=== PATIENT | female | born 1950 | race Caucasian/White ===

== ENCOUNTER → 2018-11-03 | Outpatient (CLI) | payer MEDICARE | LOC: CARD 09:48 | PROVIDERS: ATTEND Internal Medicine Cardiovascular Disease | DX: I48.91 Unspecified atrial fibrillation (principal); I10 Essential (primary) hypertension; E78.2 Mixed hyperlipidemia | CPT/HCPCS: 93225; 93226; 93306 ==

== ENCOUNTER → 2018-11-05 | Outpatient (CLI) | payer MEDICARE ==
[~2018-11-05] VITALS: Ht 165.1 cm; Wt 68.0 kg
[~2018-11-05] MED LIST: CATHETER FLUSH 10 ML SYR IV PRN
[2018-11-05 13:05] VITALS: BP 180/66
--- NOTE | 2018-11-05 18:01 | STRESS TEST ---
DATE OF SERVICE: 11/05/2018 EXERCISE MYOVIEW STRESS TEST REPORT Baseline heart rate is 68. Baseline blood pressure is 132/90. Baseline EKG is sinus rhythm with no ischemic changes. In summary, the patient was injected with 10.72 mCi of technetium-99 Myoview and the resting images were obtained. Then, the patient started exercising with a baseline heart rate, blood pressure and EKG mentioned above. The patient was able to exercise for 2 minutes and 45 seconds on standard Sam protocol. Test was terminated. EKG was showing nondiagnostic changes. During recovery, heart rate and blood pressure returned to baseline. The resting and stress images were reviewed and compared in the short axis, horizontal long axis, and vertical long axis views. Review of the images showed motion artifact affecting the quality of the images. There is reversible ischemia involving the mid to apical anterior wall and anterior septum. SSS is 9, SDS 4, and TID value 0.95. On the gated images, the left ventricle appeared to be normal size with normal contractility. Calculated ejection fraction is 83%. CONCLUSION: 1. Poor exercise tolerance, a total of 2 minutes 45 seconds on standard Sam protocol, a total of 4.2 METs achieving 90% of maximum expected heart rate 90%. 2. Hypertensive response to exercise with peak blood pressure 182/111, returned to baseline during recovery. 3. Motion artifact with breast attenuation with reversible ischemia involving the mid to apical anterior wall and anterior septum. 4. Normal left ventricular size with normal contractility. Calculated ejection fraction is 83%. Job ID: [id number] DocumentID: [id number] Dictated Date: 11/05/2018 15:37:44 Mandarin Speaking Nanny Date: 11/05/2018 18:01:17 Dictated By: SARKIS OSBORNE MD
== END ==
LOC: CARD 11:18 → EDUNIT# 11:45
PROVIDERS: ATTEND Internal Medicine Cardiovascular Disease
DX: I48.91 Unspecified atrial fibrillation (principal); I10 Essential (primary) hypertension; E78.2 Mixed hyperlipidemia
CPT/HCPCS: 78452; 93017

== ENCOUNTER 2018-11-19 08:44 | Day surgery (SDC) | payer MEDICARE ==
[2018-11-19] VITALS (9 sets, daily range): BP systolic 139–162; BP diastolic 76–96
[~2018-11-19] VITALS: Ht 165.1 cm; Wt 68.0 kg
[2018-11-19] MEDS ORDERED: NS IV 1000 ML 3,000 ML ONE (08:46)
[2018-11-19] MEDS ORDERED: LIDOCAINE 1% INJ 20 ML 20 ML VIAL ONE (08:46)
[2018-11-19] MEDS ORDERED: HEParin 1000 UNIT/ML (10ML VIAL) FOR BOLUS ONE (08:46)
[2018-11-19] MEDS ORDERED: NS IV 1000 ML 1,000 ML IV SCH ×2 (08:48→12:01)
--- OUTSIDE RECORDS SUMMARY | 2018-11-19 08:53 | XMS REPORT | Continuity of Care Document ---
Author Author [facility] Organization [facility] Address Unknown Phone Unavailable Allergies Active Description Code Type Severity Reaction Onset Reported/Identified Relationship to Patient Clinical Status Yes Sulfa (Sulfonamide Antibiotics) [id number] Drug Allergy Unknown N/A 2018 Medications There is no data. Problems Date Dx Coded Attending Type Code Diagnosis Diagnosed By 11/06/2018 SARKIS OSBORNE MD Ot E78.2 MIXED HYPERLIPIDEMIA 11/06/2018 SARKIS OSBORNE MD Ot I10 ESSENTIAL (PRIMARY) HYPERTENSION 11/06/2018 SARKIS OSBORNE MD Ot I48.91 UNSPECIFIED ATRIAL FIBRILLATION 11/18/2018 SARKIS OSBORNE MD Ot E78.2 MIXED HYPERLIPIDEMIA 11/18/2018 SARKIS OSBORNE MD Ot I10 ESSENTIAL (PRIMARY) HYPERTENSION 11/18/2018 SARKIS OSBORNE MD Ot I48.91 UNSPECIFIED ATRIAL FIBRILLATION Procedures There is no data. Results There is no data. Encounters ACCT No. Visit Date/Time Discharge Status Pt. Type Provider Facility Loc./Unit Complaint [id number] 06/21/2017 09:11:23 06/21/2017 23:59:59 [facility] Outpatient Clay Hall [id number] 06/18/2017 11:05:51 06/18/2017 23:59:59 C[facility] Outpatient Nicole Mack [id number] 03/25/2017 11:04:15 03/25/2017 23:59:59 CLS Outpatient Clay Hall [id number] 12/25/2016 10:59:20 12/25/2016 23:59:59 CLS Outpatient Clay Hall [id number] 12/06/2016 15:32:05 12/06/2016 23:59:59 CLS Outpatient Clay Hall [id number] 11/05/2018 11:18:00 11/05/2018 23:59:59 CLS Outpatient SARKIS OSBORNE MD [facility] CARD HTN [id number] 2018 09:48:00 2018 23:59:59 CLS Outpatient DYLON ARCHLUETA, SARKIS Ayala [facility] CARD HTN [id number] 11/19/2018 08:44:00 ACT Outpatient SARKIS OSBORNE MD [facility] CATH ABN STRESS, CP, HTN, HLP, PALP
[2018-11-19 09:19] LABS: HEMOGLOBIN 12.4 G/DL (11.5-16.0); MEAN PLATELET VOLUME 10.6 FL (7.4-10.4); RED CELL DISTRIBUTION WIDTH 13.5 % (10.0-14.5); WHITE BLOOD COUNT 5.3 10^3/uL (4.3-11.0)
[2018-11-19 09:30] LABS: INR 0.9 (0.8-1.4); PROTHROMBIN TIME PATIENT 11.9 SEC (12.2-14.7)
[2018-11-19 09:38] LABS: ALBUMIN 4.3 GM/DL (3.2-4.5); BILIRUBIN,TOTAL 0.4 MG/DL (0.1-1.0); CALCIUM 9.3 MG/DL (8.5-10.1); CREATININE SERUM 0.95 MG/DL (0.60-1.30); POTASSIUM 3.5 MMOL/L (3.6-5.0); TOTAL PROTEIN 6.8 GM/DL (6.4-8.2)
--- NOTE | 2018-11-19 09:58 | Diagnostic Imaging Report ---
INDICATION: Pre-heart catheterization. Patient has chest pain. TIME OF EXAM: 9:13 AM No prior studies are available for comparison. FINDINGS: Heart size is normal. There is a density identified in the right cardiophrenic region. Remainder of lung day are clear. Pulmonary vascularity is normal. No effusion or pneumothorax is seen. IMPRESSION: Masslike density in the right cardiophrenic angle. While this could represent a prominent fat, other etiologies cannot be entirely excluded. Chest CT would be useful for further evaluation. Dictated by: Dictated on workstation # [id number]
[2018-11-19] MEDS ORDERED: ASCO10006 PO (10:19)
[2018-11-19] MEDS ORDERED: CHOL5000 PO (10:21)
[2018-11-19] MEDS ORDERED: METO-387 PO (10:24)
[2018-11-19] MEDS ORDERED: ACET-2469 PO (10:24)
[2018-11-19] MEDS ORDERED: ASPI81TA64 PO (10:24)
[2018-11-19] MEDS ORDERED: ESOM20CA37 PO (10:25)
--- NOTE | 2018-11-19 10:25 | NUR ---
Patient brought in medication bottles and a list of how she takes them at home.
[2018-11-19] MEDS ORDERED: MIDAZOLAM 5 MG/5 ML (VERSED) VIAL ONE (11:01)
[2018-11-19] MEDS ORDERED: VERAPAMIL 5 MG/2 ML (CALAN) VIAL IV ONE (11:01)
[2018-11-19] MEDS ORDERED: fentaNYL INJECTION 100 MCG/2 ML AMP ONE (11:01)
[2018-11-19] MEDS ORDERED: NITRO DRIP 25000 MCG/D5W 250 ML IV ONE (11:01)
--- NOTE | 2018-11-19 11:07 | Cardiac Procedure Note-CS/ASA ---
Pre-Procedure Note Pre-Op Procedure Note H&P Reviewed The H&P was reviewed, patient examined and no changes noted. Date H&P Reviewed: Nov 19, 2018 Time H&P Reviewed: 11:07 Conscious Sedation Pre-Proced Time 11:07 ASA Score 3 For ASA 3 and 4: Consider anesthesia and medical clearance. Also, for patients with a history of failed moderate sedation consider anesthesia. Airway Lungs Heart ASA score ASA 1: a normal healthy patient ASA 2: a patient with a mild systemic disease (mid diabetes, controlled hypertension, obesity x ASA 3: a patient with a severe systemic disease that limits activity (angina , COPD, prior Myocardial infarction) ASA 4: a patient with an incapacitating disease that is a constant threat to life (CHF, renal failure) ASA 5: a moribund patient not expected to survive 24 hrs. (ruptured aneurysm) ASA 6: a declared brain- patient whose organs are being harvested. For emergent operations, add the letter E after the classification Mallampati Classification Grade 3 Sedation Plan Analgesia, Amnesia, Plan communicated to team members, Discussed options with patient/fam, Discussed risks with patient/fam The patient is an appropriate candidate to undergo the planned procedure, sedation, and anesthesia. The patient immediately re-assessed prior to indication. SARKIS OSBORNE MD Nov 19, 2018 11:07
--- NOTE | 2018-11-19 12:04 | Cardiac Cath Report ---
Cardiac Cath Report Physician (s)/[facility] (s) Physician SARKIS OSBORNE MD Pre-Procedure Diagnosis Pre-Procedure Diagnosis: coronary artery disease Post-Procedure Note Procedure Start Date: Nov 19, 2018 Name of Procedure: left heart catheterization Findings/Procedure Note PROCEDURE NOTE: After explaining the procedure to the patient, all pros and cons were explained , all questions were answered. The patient signed the consent and then she was placed on the cardiac catheterization laboratory. Groin was prepped SL fashion local anesthesia was used. Sheath placed in the right radial artery. Murdock catheter was advanced to the left ventricular cavity, left ventricular pressure was measured, no left ventricular gram was done, pullback LV to aorta was done. Advanced to the left main coronary artery and angiogram was done. I was unable to intubate the right coronary artery exchanged the catheter over long J-wire into 5 [place] JR catheter and angiograms of the right coronary system was made. At the end of the procedure the sheath was removed. Closure device with vascular band was done FINDINGS: Hemodynamics LV 105/16, end-diastolic pressure of 16 Aorta 122/73 mean of 88 ANATOMY: Left Main is free of obstructive disease Left Anterior Descending has mild disease nonobstructive disease Left Circumflex has mild disease nonobstructive disease Right Coronory Artery has mild disease nonobstructive disease CONCLUSION: 1. Mild coronary artery disease nonobstructive disease 2. Normal left ventricular end-diastolic pressure 3. Incidental finding pulmonary nodule in the right lower lobe. I will scheduled for CT angiogram of the chest as an outpatient DISCUSSION AND RECOMMENDATION: continue with medical therapy and evaluate CT of the chest Anesthesia Type: Conscious Sedation Estimated blood loss (mL): 20 ml Contrast Amount: 19 ml Total Radiation Dose: 129 mGy Post-Procedure Diagnosis Post-operative diagnosis: Coronary artery disease Hypertension Palpitation Hyperlipidemia SARKIS OSBORNE MD Nov 19, 2018 12:04
--- NOTE | 2018-11-19 12:06 | Discharge Inst-Post CATH ---
Discharge Inst-CATH/EP Post Cardiac Cath/EP D/C Inst Follow Up/Plan Appointment with Dr. Alejandra's office in 2-4 weeks CARDIAC CATH DISCHARGE INSTRUCTIONS *Hold Metformin for 48 hours post heart cath. ACTIVITY * Go Home directly and rest. * Limit activity of the leg (or wrist if it was used) for 7 days including aerobics, swimming, jogging, bicycling, etc. * Restrict stair-climbing for 7 days if possible, if not, climb up with your non -cath leg, then bring together on the same step. * Avoid lifting, pushing, pulling or excessive movement of the affected extremity for 7 days. * Customary sexual activity may be resumed after 2 days-use caution not to use a position that strains or causes pain to the affected extremity. * No driving for 24 hours. * NO SMOKING. * Avoid straining for bowel movements for 7 days. * Gentle walking on level ground is allowed. * Returning to work will depend on the type of procedure and the results. Your doctor will discuss this with you. CALL YOUR DOCTOR FOR ANY OF THE FOLLOWING: *If bleeding from the puncture site occurs- Apply gentle pressure to site with clean cloth and call your doctor or EMS. * If a knot or lump forms under the skin, increases in size, or causes pain. * If bruising appears to be worsening or moving further down your leg instead of disappearing. * Temperature above 101 F. CARE OF YOUR GROIN INCISION; * Bruising or purple discoloration of the skin near the puncture site is common. * You may shower only, no bathtub bathing for 5 days. Be careful to avoid slipping as your leg may feel stiff. * If a closure device was used on your femoral artery, please see the attached guide regarding care of the device and your leg. * Leave the dressing on, until removed by office staff. CARE OF YOUR WRIST INCISION; * Bruising or purple discoloration of the skin near the puncture site is common. * You may shower. * DO NOT submerge wrist. * Leave dressing on, until removed by office staff.. SARKIS ALEJANDRA MD Nov 19, 2018 12:06
== END 2018-11-19 15:15 | disposition home or self-care (01) ==
LOC: CATH 08:44 → SDC 12:28 → CATH 15:15
PROVIDERS: ATTEND Internal Medicine Cardiovascular Disease
DX: I25.10 Atherosclerotic heart disease of native coronary artery without angina pectoris (principal); I10 Essential (primary) hypertension; R00.2 Palpitations; E78.2 Mixed hyperlipidemia; E66.9 Obesity, unspecified; Z79.899 Other long term (current) drug therapy; Z87.891 Personal history of nicotine dependence
CPT/HCPCS: 36415; 71045; 80053; 80061; 85027; 85610; 85730; 87081; 93458

== ENCOUNTER → 2018-11-25 | Outpatient (CLI) | payer MEDICARE ==
[~2018-11-25] MED LIST changes: +ACET-2469 PO; +ASCO10006 PO; +ASPI81TA64 PO; -CATHETER FLUSH 10 ML SYR IV PRN; +CHOL5000 PO; +ESOM20CA37 PO; +IOHEXOL 350 MG/ML 100 ML (OMNIPAQUE 350) VIAL IV ONE; +METO-387 PO; +NS 100 ML (IVPB) BAG IV ONE; +RECEIVED CONTRAST 20 ML VIAL IV SCH
[2018-11-25 11:28] LABS: CREATININE SERUM 0.93 MG/DL (0.60-1.30)
--- NOTE | 2018-11-25 12:33 | Diagnostic Imaging Report ---
PROCEDURE: CT chest with contrast only. TECHNIQUE: Multiple contiguous axial images were obtained through the chest after administration of intravenous contrast. INDICATION: Abnormal chest x-ray. This study is performed for further evaluation. COMPARISON: Correlation is made with prior chest radiograph from 11/19/2018. FINDINGS: Chest radiograph demonstrated a density in the right cardiophrenic angle. This appears to be prominent epicardial fat. No mass lesion is identified. No axillary, hilar or mediastinal lymphadenopathy is seen. There is no pericardial or pleural fluid identified. No infiltrates, nodules or masses are seen. The upper abdomen is unremarkable. IMPRESSION: Prominent epicardial fat accounting for the chest radiographic density. No thoracic lymphadenopathy or pulmonary masses detected. Dictated by: Dictated on workstation # [id number]
== END ==
LOC: RAD 10:41
PROVIDERS: ATTEND Internal Medicine Cardiovascular Disease
DX: J98.4 Other disorders of lung (principal)
CPT/HCPCS: 36415; 71260; 82565; 84520

== ENCOUNTER → 2019-07-29 | Day surgery (SDC) | payer MEDICARE ==
[~2019-07-29] VITALS: Ht 166 cm; Wt 72.0 kg
[~2019-07-29] MED LIST changes: -IOHEXOL 350 MG/ML 100 ML (OMNIPAQUE 350) VIAL IV ONE; +LIDOCAINE 1% INJ 20 ML 20 ML VIAL ONE; -NS 100 ML (IVPB) BAG IV ONE; -RECEIVED CONTRAST 20 ML VIAL IV SCH
[2019-07-29 09:27] VITALS: BP 141/84
--- NOTE | 2019-07-29 10:19 | Implantation of Loop Monitor ---
Implant of Loop Monitior IMPLANTATION OF LOOP MONITOR REPORT DATE OF PROCEDURE: 07/29/19 PREOP DIAGNOSIS: Palpitation, paroxysmal atrial fibrillation POSTOP DIAGNOSIS: Palpitation, paroxysmal atrial fibrillation PROCEDURE DETAILS: The patient is a 68 female with history of paroxysmal atrial fibrillation requiring long-term surveillance. Therefore implantable loop recorder was discussed and agreed with the patient. Informed consent was taken. All risks and complications were discussed at length. The patient was draped and prepped in the usual sterile fashion. Local anesthesia was lidocaine, which was given in the substernal area close to the 4th intercostal space. Loop monitor [employer] with serial number [id number] was implanted according to the protocol. Steri- Strips were placed at the end of the procedure. There were no complications and the patient tolerated the procedure well. The device was interrogated with a voltage of. ANESTHESIA: Local anesthesia with lidocaine. COMPLICATIONS: None CONTRAST/FLUOROSCOPY: None CONCLUSION: Successful implantation of loop recorder monitor with no complication FINAL DIAGNOSIS: Paroxysmal atrial fibrillation Recurrent palpitation Hypertension SARKIS OSBORNE MD Jul 29, 2019 10:19 POS
== END | disposition home or self-care (01) ==
LOC: CATH 08:51
PROVIDERS: ATTEND Internal Medicine Cardiovascular Disease
DX: I48.0 Paroxysmal atrial fibrillation (principal); I10 Essential (primary) hypertension; E78.2 Mixed hyperlipidemia; E66.9 Obesity, unspecified; Z68.26 Body mass index [BMI] 26.0-26.9, adult; Z88.2 Allergy status to sulfonamides; Z86.73 Personal history of transient ischemic attack (TIA), and cerebral infarction without residual deficits; Z83.3 Family history of diabetes mellitus; Z82.3 Family history of stroke; Z82.49 Family history of ischemic heart disease and other diseases of the circulatory system; Z87.891 Personal history of nicotine dependence; Z90.710 Acquired absence of both cervix and uterus
CPT/HCPCS: 33285

== ENCOUNTER → 2022-06-26 | Outpatient (CLI) | payer MEDICARE ==
[~2022-06-26] MED LIST changes: -ACET-2469 PO; +ACET-3075 PO; +ASCO100024 PO; -ASCO10006 PO; -LIDOCAINE 1% INJ 20 ML 20 ML VIAL ONE; -METO-387 PO; +MTP25TSR PO
[2022-06-26 12:50] LABS: ALBUMIN 4.3 GM/DL (3.2-4.5); BILIRUBIN,TOTAL 0.5 MG/DL (0.1-1.0); CALCIUM 9.5 MG/DL (8.5-10.1); CREATININE SERUM 1.07 MG/DL (0.60-1.30); POTASSIUM 3.7 MMOL/L (3.6-5.0); TOTAL PROTEIN 7.2 GM/DL (6.4-8.2)
== END ==
LOC: LAB 12:08
PROVIDERS: ATTEND Internal Medicine Cardiovascular Disease
DX: I10 Essential (primary) hypertension (principal); E78.2 Mixed hyperlipidemia; I65.23 Occlusion and stenosis of bilateral carotid arteries; R07.9 Chest pain, unspecified; R00.2 Palpitations
CPT/HCPCS: 36415; 80053; 80061

== ENCOUNTER → 2022-06-29 | Outpatient (CLI) | payer MEDICARE | LOC: CARD 11:00 | PROVIDERS: ATTEND Internal Medicine Cardiovascular Disease | DX: I08.2 Rheumatic disorders of both aortic and tricuspid valves (principal); I10 Essential (primary) hypertension | CPT/HCPCS: 93306 ==

== ENCOUNTER → 2022-10-12 | Outpatient (CLI) | payer MEDICARE ==
[2022-10-12 10:09] LABS: ALBUMIN 3.9 GM/DL (3.2-4.5); BILIRUBIN,TOTAL 0.6 MG/DL (0.1-1.0); CALCIUM 9.1 MG/DL (8.5-10.1); POTASSIUM 3.7 MMOL/L (3.6-5.0); TOTAL PROTEIN 6.6 GM/DL (6.4-8.2)
== END ==
LOC: LAB 09:26
PROVIDERS: ATTEND Physician Assistant
DX: E78.2 Mixed hyperlipidemia (principal)
CPT/HCPCS: 36415; 80053; 80061

== ENCOUNTER → 2023-04-15 | Outpatient (CLI) | payer MEDICARE ==
[~2023-04-15] VITALS: Ht 170 cm; Wt 63.0 kg
[~2023-04-15] MED LIST changes: +REGADENOSON 0.4 MG/5 ML SYR (LEXISCAN) IV ONE
[2023-04-15] MEDS: CATHETER FLUSH 10 ML SYR IVP PRN ×2 (08:18→09:58)
[2023-04-15 09:57] VITALS: BP 144/88
--- NOTE | 2023-04-15 11:38 | Cardiology Stress Test Report ---
Stress Test Report Date of Procedure/Referring: Date of Procedure: Apr 15, 2023 PCP Roro Cardenas MD Admitting Physician Admitting Physician: Attending Physician: Romreo Alejandra MD Baseline Heart Rate: 71 Baseline Blood Pressure: Blood Pressure Systolic: 144 Blood Pressure Diastolic: 88 Baseline Vitals Vital Signs Date Time Temp Pulse Resp B/P (MAP) Pulse Ox O2 Delivery O2 Flow Rate FiO2 04/15/23 09:57 80 16 144/88 (106) 97 Room Air Baseline EKG: Baseline EKG: NSR Summary After explaining the procedure to the patient, she signed a consent and then brought to the stress nuclear laboratory. Patient received 0.4 mg Lexiscan for stress test, ECG, heart rate and blood pressure were monitored continuously. Resting and stress dose of radio tracer were injected, imaging was acquired and reviewed in short axis, horizontal long axis and vertical long axis views. TID: 1.19 SSS: 5 SDS: 1 EF: 77 Patient tolerated Lexiscan well Occasional PVCs noted during test Extracardiac attenuation affecting the quality of the images, mild decrease uptake at the mid to apical inferior wall which is fixed. No significant ischemia or infarction on SPECT images Normal left ventricular size, ejection fraction 77% ROMERO ALEJANDRA MD Apr 15, 2023 11:38
== END ==
LOC: CARD 07:50
PROVIDERS: ATTEND Internal Medicine Cardiovascular Disease
DX: I10 Essential (primary) hypertension (principal)
CPT/HCPCS: 78452; 93017; A9502

== ENCOUNTER → 2023-05-13 | Day surgery (SDC) | payer MEDICARE ==
[~2023-05-13] VITALS: Ht 165 cm; Wt 70.4 kg
[~2023-05-13] MED LIST changes: +LIDOCAINE 1% INJ 20 ML VIAL INJ ONE; +LIDOCAINE 1% INJ 20 ML VIAL ONE; -REGADENOSON 0.4 MG/5 ML SYR (LEXISCAN) IV ONE
[2023-05-13 08:20] VITALS: BP 169/98
--- NOTE | 2023-05-13 11:45 | Implantation of Loop Monitor ---
Implant of Loop Monitior IMPLANTATION OF LOOP MONITOR REPORT DATE OF PROCEDURE: 05/13/23 PREOP DIAGNOSIS: Palpitation, paroxysmal atrial tachycardia POSTOP DIAGNOSIS: Palpitation, paroxysmal atrial tachycardia PROCEDURE DETAILS: The patient is a 72 female with history of recurrent palpitation and paroxysmal atrial tachycardia requiring long-term surveillance. Therefore implantable loop recorder was discussed and agreed with the patient. Patient had a loop monitor that had a depleted battery. Informed consent was taken. All risks and complications were discussed at length. The patient was draped and prepped in the usual sterile fashion. Local anesthesia was lidocaine, which was given in the substernal area close to the 4th intercostal space. Skin incision was made and the loop monitor was extracted then and new loop monitor [place] [employer] with serial number [id number] was implanted according to the protocol. Sutures were made in 2 layers, Steri-Strips were placed at the end of the procedure. There were no complications and the patient tolerated the procedure well. The device was interrogated with a voltage of. ANESTHESIA: Local anesthesia with lidocaine. COMPLICATIONS: None CONTRAST/FLUOROSCOPY: None CONCLUSION: Successful extraction of a depleted loop monitor Successful implantation of a new loop monitor device FINAL DIAGNOSIS: Palpitation Paroxysmal atrial tachycardia TIA SARKIS OSBORNE MD May 13, 2023 11:45
== END | disposition home or self-care (01) ==
LOC: CATH 07:56
PROVIDERS: ATTEND Internal Medicine Cardiovascular Disease
DX: I47.1 Supraventricular tachycardia (principal); R00.2 Palpitations; I25.10 Atherosclerotic heart disease of native coronary artery without angina pectoris; I07.1 Rheumatic tricuspid insufficiency; I10 Essential (primary) hypertension; I65.23 Occlusion and stenosis of bilateral carotid arteries; E78.2 Mixed hyperlipidemia; Z87.891 Personal history of nicotine dependence; Z79.899 Other long term (current) drug therapy; Z79.82 Long term (current) use of aspirin
CPT/HCPCS: 33285; 33286; C1764